=== PATIENT | female | born 1945 | race Caucasian/White ===

== ENCOUNTER 2017-02-05 22:56 | Emergency (ER) | payer MEDICARE, OTHER, MEDICAID ==
[~2017-02-05] VITALS: Ht 167.6 cm; Wt 81.8 kg
[~2017-02-05 22:56] MED LIST: ASPI81TA3 PO; DIPH1TAB PO; METO25TA6 PO; NAPR220C11 PO; ONDA8TAB7 PO; POTA20TA16 PO; PROC-4 PO
[2017-02-05 23:01] VITALS: BP 148/102; PULSE 114; RESP 16
--- NOTE | 2017-02-05 23:27 | ED.REPORT ---
HPI-Head Prob / Injury Date of Service Feb 05, 2017 ED Provider: Dr. Joey Quick M.D. A 71 year old female with a medical history including stage IV lung cancer with metastasis to the liver on chemotherapy presents to the ED with head trauma after a mechanical ground level fall onto cement earlier today. Associated symptoms include facial contusions, nose pain, neck pain, headache, jaw misalignment, bilateral hand pain, and bilateral knee pain. The patient does not know whether or not she lost consciousness. She denies nausea, vomiting, vision change, or other symptoms. The patient takes ASA daily. She was seen by her oncologist today before the fall. Nursing Notes Stated Complaint: FELL DOWN ON CEMENT FACE FIRST Chief Complaint: General Complaint Nursing Notes Reviewed: Yes Allergies: Coded Allergies: doxycycline (Verified Allergy, Severe, 02/05/17) oxycodone (Verified Allergy, Severe, Anaphylaxis, 02/05/17) PER PT. OK TO TAKE CODEINE AND NORCO meperidine (Verified Adverse Reaction, Severe, Nausea,Vomiting, 02/05/17) PER PT Scheduled Aspirin Chew (Aspirin Chew) 81 Mg Chew 81 MG PO DAILY Metoprolol Tartrate (Metoprolol Tartrate) 25 Mg Tablet 12.5 MG PO BID Potassium Chloride (Potassium Chloride) 20 Meq Tab.er.prt 40 MEQ PO BID TAKE WITH FOOD Prochlorperazine Maleate (Compazine) 10 Mg Tablet 10 MG PO q4-6hrs prn Scheduled PRN Diphenoxylate/Atropine 2.5-0.025 mg (Lomotil 2.5-0.025 mg) 1 Each Tablet 1 TABLET PO Q4H PRN PRN For Diarrhea or Loose Stool Naproxen Sodium (Aleve) 220 Mg Capsule 220 MG PO prn PRN PRN For Pain Ondansetron ODT (Zofran ODT) 8 Mg Tablet 8 MG PO Q4H PRN PRN For Nausea General Time Seen by Provider: 23:26 Chief Complaint Blunt head trauma, Other (Ground Level Fall) Hx Obtained From: Patient Arrived By: Walk-in Onset Occurred: 1 - 4 hours ago Symptom Duration: Since onset Caused by: Fall while (walking) Location: : Chin: Forehead: Neck: Nose Quality: Painful Severity: Current: Moderate Severity: Maximum: Moderate Pertinent Negative: Relieved by nothing Immunizations: Tetanus not up to date Recent Healthcare: Recent doctor visit Past Medical History Past Medical History Notes: Assorter: Dr. Kapoor Oncologist: Dr. 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), stage IV on chemo with carboplatin and etopside Indeterminate 7 mm area of enhancement in the brain Malignant bilateral pleural effusion Now liver metastases - 02/05/17 Past Surgical History Possibly a lung biopsy 01/06/2016 Reports: Cholecystectomy Family History noncontributory Smoking History Former Smoker Social History Alcohol Use: Denies alcohol use Drug Use: Denies drug use Other Social History: Good social support, Local resident Ambulatory Status Independent Review of Systems Review of Systems Note: + Facial contusions, jaw misalignment, nose pain LOC status unknown Constitutional: Denies: Fever GI: Denies: Diarrhea, Nausea, Vomiting Musculoskeletal: Reports: Extremity pain (Bilateral hands), Joint pain ( Bilateral knees), Neck pain Neurologic: Reports: Headache, Denies: Vision change Complete sys rev & neg: except as marked. Respiratory: Denies: Non-productive cough, Shortness of breath Physical Exam Initial Vital Signs Vital Signs (First) Date Time Temp Pulse Resp B/P Pulse Ox O2 Delivery O2 Flow Rate FiO2 02/05/17 23:01 36.8 114 16 148/102 Room Air 02/06/17 01:49 97 Initial VS: Reviewed Abdomen / GI: Soft, Non-tender Skin: Warm, Dry, No cyanosis Psychiatric: Mood/affect normal, Behavior normal, Normal thought content General/Constitutional: Awake, Alert, No acute distress Head / Eyes: Normocephalic, PERRL, EOMI, No nystagmus, No scleral icterus, Conjunctiva NL Trauma - General: Positive: Abrasion (Large, to forehead) Trauma - Eye Specific: Positive: Raccoon eyes ENT: Airway patent, Mucous membranes moist Nose: Positive: Nasal swelling present Trauma - General: Positive: Abrasion (Large, to nose and chin) Blood in bilateral nares Bite malalignment Obvious nasal fracture Neck: Atraumatic Neck / Muscle Tenderness: Positive: Midline tenderness mid Neurologic: Oriented X3, Speech NL Respiratory / Chest: Breath sounds NL, Breath sounds = bilat, No respiratory distress, No chest tenderness Cardiovascular: Heart rate NL, Regular rhythm, Heart sounds NL Lower Extremity / Pelvis / MS: Pelvis stable, Pelvis non-tender Lower Ext Brief Normals: Hip R exam normal, Hip L exam normal Wrist / Hand: Full range of motion Trauma / Burn / Environmental: Positive: Abrasion (To hypothenar eminences and right fingers) Interpretation & Diagnostics CT MAXILLOFACIAL: IMPRESSION: Right nasal bone fracture. Transmitted to ED by radiologist Abraham Gimenez M.D. at 02/06/2017 - 12:30:08 AM PDT Lab Results Interpretation Result Diagram: 02/06/17 0001 02/06/17 0001 Test 02/06/17 00:01 White Blood Count 4.5th/mm3 (3.8-10.1) Red Blood Count 3.86mil/mm3 (3.90-5.20) Hemoglobin 11.9g/dL (12.0-15.6) Hematocrit 37.3% (35.0-46.0) Mean Corpuscular Volume 96.6fL (81-100) Mean Corpuscular Hemoglobin 30.8pg (27.0-35.0) Mean Corpuscular Hemoglobin Concent 31.9% (32.0-37.0) Red Cell Distribution Width 16.9% (12.3-15.4) Platelet Count 206bil/L (150-400) Neutrophils (%) (Auto) 71.6% (40-74) Lymphocytes (%) (Auto) 12.4% (14-46) Monocytes (%) (Auto) 14.0% (4-12) Eosinophils (%) (Auto) 0% (0-5) Basophils (%) (Auto) 0.4% (0-3) Prothrombin Time 10.1sec (8.1-12.5) Prothromb Time International Ratio 0.95ratio Activated Partial Thromboplast Time 23.2sec (22.8-33.0) Sodium Level 140mEq/L (134-144) Potassium Level 4.4mEq/L (3.5-5.2) Chloride Level 104mEq/L (97-108) Carbon Dioxide Level 20mmol/L (18-29) Blood Urea Nitrogen 12mg/dL (8-27) Creatinine 0.81mg/dL (0.57-1.00) Estimat Glomerular Filtration Rate 100mL/min (>59) Glucose Level 140mg/dL (60-99) Calcium Level 9.7mg/dL (8.5-10.1) Magnesium Level 2.1mg/dL (1.6-2.6) Total Bilirubin 0.4mg/dL (0.0-1.2) Aspartate Amino Transf (AST/SGOT) 14U/L (0-50) Alanine Aminotransferase (ALT/SGPT) 17U/L (0-32) Alkaline Phosphatase 144U/L (25-165) Total Protein 6.6g/dL (6.4-8.4) Albumin 3.7g/dL (3.4-5.0) CT Head Interpretation IMPRESSION: No CT evidence of hemorrhage, mass, or acute infarct. Transmitted to ED at 02/06/2017 - 12:27:30 AM PDT Study: Head CT no contrast Interpretation / Wet Read by: Interpret - Radiologist (Abraham Gimenez M.D.) Re-Eval/Medical Decision Med Decision/Clinical Course 71-year-old female with prior history of lung cancer, suffered a ground-level fall, mechanical nature, fractured nose. CT of the cranium and neck are negative. No other overt facial injuries other than abrasions are noted. Remainder of exam is unremarkable. She has some abrasions on her hands and knees but no evidence of bony injury. Her wounds were soaked and then dressed with bacitracin. Discharged home for follow-up with PCP. Prompt return if nauseated. Source of Hx: Old records Re-Evaluation/Progress : Time of Eval: 00:54 Patient Status: Condition improved Re-Evaluation/Progress Note: Discussed with patient CT and lab results, diagnosis, and plan for discharge after wound treatment. Follow-up and return to the ER instructions given. Patient agrees with plan for care and all questions were addressed. Counseled Regarding: Diagnosis, Lab results, Need for follow-up, When/why to return to ED Discharge & Departure Shift Change Sign-Out Response to Therapy: Improved Primary Impression: Nasal fracture Encounter type: initial encounter Fracture type: closed Qualified Code: S02.2XXA - Fracture of nasal bones, initial encounter for closed fracture Additional Impressions: Cervical strain Encounter type: initial encounter Qualified Code: S16.1XXA - Strain of muscle, fascia and tendon at neck level, initial encounter Abrasions of multiple sites Facial contusion Encounter type: initial encounter Qualified Code: S00.83XA - Contusion of other part of head, initial encounter Disposition: Home All VS Reviewed: Yes Condition: Improved Patient Instructions: Abrasion (ED), Cervical Spine Strain (ED), Nasal Fracture (ED) Additional Instructions: Advil as needed for pain. Bacitracin to the open areas on her face 3-4 times daily to prevent crusting and scabbing. Follow-up with your doctor in the office. Return if any vomiting. Barrios if he develop any numbness or weakness or other new symptoms of concern. Referrals: Jamey Gonzalez MD (PCP) Toribioibcristina Attestation Portions of this note were transcribed by Qiana Schrader. I, Dr. Quick, personally performed the history, physical exam, and medical decision-making; I reviewed and confirmed the accuracy of the information in the transcribed note. Signed by: Jean Salazar, 02/06/2017, 02:55 copies to: Jamey Gonzalez MD, Christopher W MD Feb 05, 2017 23:27 QIANA SCHRADER Feb 05, 2017 23:40
[2017-02-05] MEDS ORDERED: Ondansetron 2 mg/mL 2 mL Inj IVPUSH ONE (23:50)
[2017-02-05] MEDS ORDERED: HYDROmorphone 0.5 mg/0.5 mL iSecure Syringe IVPUSH PRN (23:50)
[2017-02-06 00:12] LABS: BASOPHILS % (AUTO) 0.4 % (0-3); EOSINOPHILS % (AUTO) 0 % (0-5); Mean Corpuscular Hemoglobin 30.8 pg (27.0-35.0); Mean Corpuscular Volume 96.6 fL (81-100); NEUTROPHILS % (AUTO) 71.6 % (40-74); Platelet Count 206 bil/L (150-400)
[2017-02-06 00:28] LABS: INR 0.95 ratio
[2017-02-06 00:34] LABS: Magnesium 2.1 mg/dL (1.6-2.6)
[2017-02-06] MEDS ORDERED: TdaP Vaccine 0.5 mL Inj IM ONE (01:00)
[2017-02-06] MEDS ORDERED: Ketorolac 15 mg/mL Inj IVPUSH ONE (01:00)
[2017-02-06 01:49] VITALS: BP 140/90; PULSE 82; RESP 20; O2SAT 97
--- NOTE | 2017-02-06 07:59 | DRSVH ---
PROCEDURE: CT BRAIN WITHOUT CONTRAST ([id number]) INDICATIONS: fall with facial injuries TECHNIQUE: Noncontrast 4.5 mm thick angled axial sections acquired from the foramen magnum to the vertex, with c oronal reformats. COMPARISON: [facility], CT, CT FACE WO CON, 02/06/2017, 0:08. [facility], CT , CT BRAIN WO CON, 07/20/2016, 12:35. FINDINGS: Image quality: Excellent. CSF spaces: Basal cisterns are patent. No extra-axial fluid collections. The ventricles are symmet nicolás in size and shape. Brain: No intracranial bleeds or masses. There is mild cerebral volume loss for age, with resultant ventricular and sulcal prominence. There are mild periventricular and deep white matter chronic sma ll vessel ischemic changes. There is intracranial internal carotid artery atherosclerosis. Skull and face: Calvarium and visualized facial bones appear intact, without suspicious lesions. Parrish spect a right nasal bone fracture. Sinuses: Visualized sinuses and mastoids are clear. IMPRESSION: 1. No acute intracranial abnormalities. 2. Cerebral volume loss and chronic microvascular ischemic changes. 3. Right nasal bone fracture (please see separate facial bone CT report). No significant discrepancy with the head turbine operator radiology preliminary report. Dictated by: Stephan Hodgson M.D. on 02/06/2017 at 7:58 Transcribed by: PAL on 02/06/2017 at 7:59 Approved by: Stephan Hodgson M.D. on 02/06/2017 at 8:50
--- NOTE | 2017-02-06 08:01 | DRSVH ---
PROCEDURE: CT CERVICAL SPINE WITHOUT CONTRAST ([id number]) INDICATIONS: fall with facial injuries TECHNIQUE: Noncontrast 3 mm thick sections acquired from the skull base to the T4 level. Sagittal and coronal r eformats were then constructed. For radiation dose reduction, the following was used: automated exp osure control, adjustment of mA and/or kV according to patient size. COMPARISON: [facility], OR, PET NECK TO MID THIGH STD, 05/04/2016, 11:40. FINDINGS: Image quality: Excellent. Bones: No fractures or dislocations. Mild scoliosis. There is grade 1 anterolisthesis of C3 over C4 . Degenerative disc disease is present in cervical spine, moderate to at C6-C7. There is bilateral fa cet arthropathy, most pronounced at C3-C4 and C4-C5 on the left. Visualized superior ribs are intact. Soft tissues: Prevertebral soft tissues are normal in thickness. No paravertebral hematomas. No ap ical pneumothoraces. There are bilateral thyroid nodules. IMPRESSION: 1. No acute injuries in cervical spine. 2. Degenerative changes as described. 3. Degenerative spondylolisthesis at C3-C4. 4. Bilateral thyroid nodules. Thyroid ultrasound suggested if clinically indicated. No significant discrepancy with the lighting engineer radiology preliminary report. Please note incidental finding of thyroid nodules not mentioned in the preliminary report. Dictated by: Stephan Hodgson M.D. on 02/06/2017 at 7:59 Transcribed by: PAL on 02/06/2017 at 8:00 Approved by: Stephan Hodgson M.D. on 02/06/2017 at 8:55
--- NOTE | 2017-02-06 09:05 | DRSVH ---
PROCEDURE: CT FACE WITHOUT CONTRAST ([id number]) INDICATIONS: fall with facial injuries TECHNIQUE: Noncontrast 1.5 mm thick axial images acquired from the mandible through the frontal sinuses, with co esperanza and sagittal reformatting. For radiation dose reduction, the following was used: automated ex posure control. COMPARISON: None. FINDINGS: Image quality: Excellent. Bones and teeth: Minimally displaced right nasal bone fracture and nondisplaced left nasal bone frac ture. Orbital olvera are intact. Sinus olvera show no fracture or deformity. Visualized portions of t he mandible demonstrate no fractures or subluxation. Zygomatic arches are intact. Pterygoid plates are intact. Visualized portions of the skull base and auditory canals are intact. Sinuses: Paranasal sinuses are aerated, without fluid levels, mucosal thickening, or mucoceles. Mas toid air cells are aerated. Soft tissues: There is right preorbital soft tissue edema. No enlarged lymph nodes. No soft tissue lacerations or debris. Vascular: Visualized vascular structures appear normal in the absence of contrast. Bony vascular fo ramina and canals are intact. IMPRESSION: Minimally displaced right nasal bone fracture and nondisplaced left nasal bone fracture. No significant discrepancy with the grapple crew leader radiology preliminary report. Dictated by: Stephan Hodgson M.D. on 02/06/2017 at 8:10 Approved by: Stephan Hodgson M.D. on 02/06/2017 at 9:03
== END 2017-02-06 01:50 | disposition home or self-care (01) ==
LOC: SED 22:56
DX: S02.2XXA Fracture of nasal bones, initial encounter for closed fracture (principal); S16.1XXA Strain of muscle, fascia and tendon at neck level, initial encounter; S00.83XA Contusion of other part of head, initial encounter; S60.511A Abrasion of right hand, initial encounter; W18.39XA Other fall on same level, initial encounter; Y93.01 Activity, walking, marching and hiking; Y92.9 Unspecified place or not applicable; Y99.8 Other external cause status; Z87.891 Personal history of nicotine dependence; Z79.82 Long term (current) use of aspirin; Z88.8 Allergy status to other drugs, medicaments and biological substances; Z88.1 Allergy status to other antibiotic agents; Z88.5 Allergy status to narcotic agent; Z85.118 Personal history of other malignant neoplasm of bronchus and lung; Z85.05 Personal history of malignant neoplasm of liver; Z23 Encounter for immunization
CPT/HCPCS: 36415; 70450; 70486; 72125; 80053; 83735; 85025; 85610; 85730; 90471; 90715; 96374; 99285; J1885

== ENCOUNTER 2017-05-13 07:26 | Inpatient (IN) | payer MEDICARE, OTHER ==
[~2017-05-13] VITALS: Ht 167.6 cm; Wt 83.2 kg
[~2017-05-13 07:26] MED LIST changes: +IBUP200C11 PO
--- NOTE | 2017-05-13 07:27 | ED.REPORT ---
HPI-Trauma Minor / Fall Date of Service May 13, 2017 ED Provider: Lisa Magana MD Patient is a 71 year old female with a history of metastatic lung cancer undergoing radiation therapy who presents to the ED via EMS after a ground level fall today. Associated symptoms include progressing weakness over the past week, decreased appetite and numbness in her extremities. She denies injury from her fall. Per the patient's daughter, the patient has had decreased barrel planer strength and unable to walk due to weakness that started this morning. The patient began radiation two weeks ago and her last radiation therapy was 3 days ago. Nursing Notes Stated Complaint: WEAKNESS Chief Complaint: GLF Nursing Notes Reviewed: Yes Allergies: Coded Allergies: doxycycline (Verified Allergy, Severe, 02/05/17) oxycodone (Verified Allergy, Severe, Anaphylaxis, 02/05/17) PER PT. OK TO TAKE CODEINE AND NORCO meperidine (Verified Adverse Reaction, Severe, Nausea,Vomiting, 02/05/17) PER PT Scheduled Aspirin Chew (Aspirin Chew) 81 Mg Chew 81 MG PO DAILY Ibuprofen (Advil) 200 Mg Capsule 200 MG PO PRN Metoprolol Tartrate (Metoprolol Tartrate) 25 Mg Tablet 12.5 MG PO BID Potassium Chloride (Potassium Chloride) 20 Meq Tab.er.prt 40 MEQ PO BID TAKE WITH FOOD Prochlorperazine Maleate (Compazine) 10 Mg Tablet 10 MG PO q4-6hrs prn Scheduled PRN Diphenoxylate/Atropine 2.5-0.025 mg (Lomotil 2.5-0.025 mg) 1 Each Tablet 1 TABLET PO Q4H PRN PRN For Diarrhea or Loose Stool Naproxen Sodium (Aleve) 220 Mg Capsule 220 MG PO prn PRN PRN For Pain Ondansetron ODT (Zofran ODT) 8 Mg Tablet 8 MG PO Q4H PRN PRN For Nausea General Time Seen by MD: 09:10 Chief Complaint Fall Hx Obtained From: Patient, Daughter, EMS Arrived By: Ambulance Onset Occurred: Just prior to arrival Symptom Duration: Since onset Caused by: Fall on ground Recent Healthcare: Recent doctor visit Similar Sx Previous: No Past Medical History Past Medical History Notes: Workforce Planning Analyst: Dr. Kapoor Oncologist: Dr. 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), stage IV on chemo with carboplatin and etopside Indeterminate 7 mm area of enhancement in the brain Malignant bilateral pleural effusion Now liver metastases - 02/05/17 Past Surgical History Possibly a lung biopsy 01/06/2016 Reports: Cholecystectomy Family History noncontributory Smoking History Former Smoker Social History Alcohol Use: Denies alcohol use Drug Use: Denies drug use Other Social History: Good social support, Local resident Ambulatory Status Independent Review of Systems Review of Systems Note: +decreased appetite Constitutional: Denies: Chills, Fever Respiratory: Denies: Non-productive cough, Shortness of breath Skin: Denies Itching Neurologic: Reports: Numbness, Problem walking, Weakness, Denies: Change LOC Complete sys rev & neg: except as marked. Physical Exam Initial Vital Signs Vital Signs (First) Date Time Temp Pulse Resp B/P Pulse Ox O2 Delivery O2 Flow Rate FiO2 05/13/17 07:37 36.2 107 16 129/95 92 Room Air Initial VS: Reviewed General/Constitutional: Awake, Alert hard of hearing Neck: Atraumatic, Supple, Full range of motion Head / Eyes: Atraumatic, Normocephalic, PERRL, EOMI Respiratory / Chest: Atraumatic, Breath sounds NL, Breath sounds = bilat, No respiratory distress Cardiovascular: Heart rate NL, Regular rhythm, Heart sounds NL flexed posture in the both hands flexed posture in bilateral toes Skin: Atraumatic, Color NL, No rash, Warm, Dry Neurologic: Oriented X3, Speech NL, No motor deficits, No sensory deficits Abnormal Thinking / Perception: Positive: Confused Interpretation & Diagnostics Lab Results Interpretation Result Diagram: 05/13/17 0800 05/13/17 0800 Test 05/13/17 08:00 White Blood Count 8.1th/mm3 (3.8-10.1) Red Blood Count 3.85mil/mm3 (3.90-5.20) Hemoglobin 12.1g/dL (12.0-15.6) Hematocrit 37.2% (35.0-46.0) Mean Corpuscular Volume 96.6fL (81-100) Mean Corpuscular Hemoglobin 31.4pg (27.0-35.0) Mean Corpuscular Hemoglobin Concent 32.5% (32.0-37.0) Red Cell Distribution Width 16.0% (12.3-15.4) Platelet Count 174bil/L (150-400) Neutrophils (%) (Auto) 70.3% (40-74) Lymphocytes (%) (Auto) 15.4% (14-46) Monocytes (%) (Auto) 12.8% (4-12) Eosinophils (%) (Auto) 0.9% (0-5) Basophils (%) (Auto) 0.4% (0-3) Sodium Level 139mEq/L (134-144) Potassium Level 3.2mEq/L (3.5-5.2) Chloride Level 98mEq/L (97-108) Carbon Dioxide Level 27mmol/L (18-29) Blood Urea Nitrogen 10mg/dL (8-27) Creatinine 0.66mg/dL (0.57-1.00) Estimat Glomerular Filtration Rate 127mL/min (>59) Glucose Level 123mg/dL (60-99) Calcium Level 9.0mg/dL (8.5-10.1) Total Bilirubin 0.5mg/dL (0.0-1.2) Aspartate Amino Transf (AST/SGOT) 25U/L (0-50) Alanine Aminotransferase (ALT/SGPT) 28U/L (0-32) Alkaline Phosphatase 149U/L (25-165) Total Protein 6.7g/dL (6.4-8.4) Albumin 3.3g/dL (3.4-5.0) Hold Parish Top Tube Received (Received) CT Head Interpretation IMPRESSION: Hypodensities in the right frontal lobe, right temporal lobe and left occipital lobe are consistent with vasogenic edema related to multiple intracranial metastases which were better seen on the comparison contrast enhanced MRI. There is no midline shift. If clinically indicated, followup MRI with and without contrast may be considered. Dictated by: Stephan Hodgson M.D. on 05/13/2017 at 11:23 Approved by: Stephan Hodgson M.D. on 05/13/2017 at 11:34 Interpretation / Wet Read by: Interpret - Radiologist Re-Eval/Medical Decision Med Decision/Clinical Course 71-year-old woman with metastatic lung cancer with multiple lesions to her brain. One week ago started radiation palliative for the brain lesions had 2 doses has had a single dose of amiodarone therapy. MRI 2 weeks ago did show vasogenic edema she has not been on any steroids to try to allow the immunotherapy to be as effective as possible. Last night was doing well this morning awoke and was having trouble moving arms legs unable to stand unable to do transfers and complaining of numbness in all 4 extremities. Lung discussion regarding her diagnosis at this point she is still not at a point that she is excepting the fact that her metastatic cancer is progressing and she is going to be dying. Decadron is given in the emergency department. Care is reviewed with Dr. Boone. CT scan is repeated vasogenic edema is noted today no new bleeding is noted into the multiple metastatic lesions in her brain. Question as to whether To make some improvement with decreasing the edema and then continue with the immunotherapy and radiotherapy or whether we should simply proceed with hospice and making sure that her symptoms are controlled We will admit to hospitalist service. Hospice consult at 2:[address] Boone we will talk with her later this afternoon and see if there is been any benefit from the Decadron given this morning. All questions and options are reviewed with patient and her daughter. Re-Evaluation/Progress : Time of Eval: 10:28 Re-Evaluation/Progress Note: Discussed plan for CT after consult with Dr. Boone and plan for admit. Patient understands and agrees to plan. All questions were addressed. Consultation #1: Referral / Consult Name: Perfecto Bridges MD Consulted With: Primary care physician (oncology) Call Returned at: 10:20 Indigo Vat Tender Cloth: Agrees with eval, Agrees with plan Note: Consult with Dr. Boone, who recommends a CT to see if it is edema. He will consult as an inpatient. Consultation #2: Referral / Consult Name: Edin Dorman MD Consulted With: Hospitalist Call Returned at: 11:45 Indigo Vat Tender Cloth: Agrees with eval, Agrees with plan, Accepts admit Counseled Regarding: Diagnosis, Lab results, Need for admission Discharge & Departure Impression: Primary Impression: Vasogenic brain edema Additional Impressions: Metastatic lung cancer (metastasis from lung to other site) Laterality: unspecified laterality Qualified Code: C34.90 - Malignant neoplasm of unspecified part of unspecified bronchus or lung Numbness in both hands Numbness in both legs Disposition: ADMITTED TO HOSPITAL Discharge Condition All VS Reviewed: Yes Condition: Stable Referrals: [facility] Scribe Attestation Portions of this note were transcribed by Melanie Roldan. I, Dr. Magana personally performed the history, physical exam and medical decision-making; I reviewed and confirmed the accuracy of the information in the transcribed note. Signed by: Jean Barnard, 05/13/17 and 1200 copies to: Perfecto Bridges MD; [facility] Guy Mclain MD May 13, 2017 07:27 Yuliana Nickerson May 13, 2017 08:31 Devi Roldan May 13, 2017 09:11 Lisa Magana MD May 13, 2017 12:37
[2017-05-13 07:37] VITALS: BP 129/95; PULSE 107; RESP 16; O2SAT 92
[2017-05-13 08:26] LABS: BASOPHILS % (AUTO) 0.4 % (0-3); EOSINOPHILS % (AUTO) 0.9 % (0-5); MONOCYTES % (AUTO) 12.8 % (4-12); Mean Corpuscular Hemoglobin 31.4 pg (27.0-35.0); Mean Corpuscular Volume 96.6 fL (81-100); NEUTROPHILS % (AUTO) 70.3 % (40-74); Platelet Count 174 bil/L (150-400)
[2017-05-13] MEDS ORDERED: HYDROmorphone 0.5 mg/0.5 mL iSecure Syringe IVPUSH PRN (10:10)
[2017-05-13] MEDS ORDERED: Dexamethasone Inj 10 MG in 0.9% Sodium Chloride-Pha MIX 50 ML IV ONE (10:10)
[2017-05-13] MEDS ORDERED: Ondansetron 2 mg/mL 2 mL Inj IVPUSH ONE (10:40)
[2017-05-13 11:21] VITALS: BP 141/91; PULSE 91; RESP 18; O2SAT 96
--- NOTE | 2017-05-13 11:36 | DRSVH ---
PROCEDURE: CT BRAIN WITHOUT CONTRAST ([id number]) INDICATIONS: acute progressive neurologic dysfunction TECHNIQUE: Noncontrast 4.5 mm thick angled axial sections acquired from the foramen magnum to the vertex, with c oronal reformats. COMPARISON: [facility], MR, MR BRAIN W&WO CON, 04/29/2017, 12:20. [facility], CT, CT BRAIN WO CON, 02/06/2017, 0:08. FINDINGS: Image quality: Excellent. CSF spaces: Basal cisterns are patent. No extra-axial fluid collections. The ventricles are symmet nicolás in size and shape. Brain: There are hypodensities in the right frontal lobe, right temporal and left occipital lobe, co rrelating with the enhancing masses seen on MRI dated 04/29/2017. This finding is new compared to the last CT on 02/06/2017. No intracranial bleeds. There is cerebral volume loss for age, with resultant ventricular and sulcal prominence. There are periventricular and deep white matter chronic small ves jimmy ischemic changes. There is intracranial internal carotid artery atherosclerosis. Skull and face: Calvarium and visualized facial bones appear intact, without suspicious lesions. Sinuses: Visualized sinuses and mastoids are clear. IMPRESSION: Hypodensities in the right frontal lobe, right temporal lobe and left occipital lobe are consistent with vasogenic edema related to multiple intracranial metastases which were better seen on the comparison contrast enhanced MRI. There is no midline shift. If clinically indicated, followup M RI with and without contrast may be considered. Dictated by: Stephan Hodgson M.D. on 05/13/2017 at 11:23 Approved by: Stephan Hodgson M.D. on 05/13/2017 at 11:34
[2017-05-13 12:01] VITALS: BP 141/91; PULSE 91; RESP 18; O2SAT 96
[2017-05-13] MEDS ORDERED: Alum-Mag Hydrox-Simeth 30 mL Suspension PO PRN (12:30)
[2017-05-13] MEDS ORDERED: Ondansetron 2 mg/mL 2 mL Inj IVPUSH PRN (12:30)
[2017-05-13] MEDS ORDERED: HYDR-4003 PO (12:45)
[2017-05-13] MEDS ORDERED: HYDR2TAB28 PO (12:45)
--- NOTE | 2017-05-13 12:50 | NUR ---
Arrival to [facility] Rm 1010 Pt arrived to [facility] Rm 1010; daughter at bs. A&Ox3, transfer using slide board to bed from [facility]. A&Ox3, stiff extremities and some decorticate posturing noted with hands; RA, SPO2 mid 90's, BP elevated 163/113; answers questions appropriately, SLEETMUTE noted, R chest port-a-cath accessed and IV NS infusing 50mls/hr. Markings on skin, upper thighs bilaterally medial sides, below abdomen for radiation treatments per daughter. Pt tucked in with warm blankets and call light in place. Order for Hospice consult today at 2pm. Will continue to monitor with frequent rounds.
[2017-05-13 13:07] VITALS: BP 163/113; PULSE 99; RESP 16; O2SAT 96
[2017-05-13] MEDS ORDERED: METO25TA6 PO (14:16)
[2017-05-13] MEDS: 0.9% Sodium Chloride 250 ML IV SCH (14:22)
[2017-05-13] MEDS ORDERED: Sodium Chloride LOK Flush 10 mL Syringe IVFLUSH PRN ×2 (14:25)
[2017-05-13] MEDS ORDERED: HepLOK Flush 100 unit/mL 5 mL Inj IVFLUSH PRN (14:25)
--- NOTE | 2017-05-13 15:01 | PCM.HPMED ---
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 Pt had had new MRI finding of multiple new small brain metastases on 04/29/17. Outpatient Oncologist- Dr. Boone. Last saw April 30. Started immunotherapy at that visit. 04/29/17- MRI- multiple new small brain metastases April 2017, new since 2015. Pt started XRT again and had 2 treatments. Was to get 3rd XRT today. Pt was not started on steroids as had no neurological symptoms at the time. Plan for Nivolumab 1 mg/kg and combined with ipilimumab 3 mg/kg every three weeks for four cycles and then switching to maintenance single agent nivolumab Past tx- received induction chemotherapy with carboplatin, etoposide, followed by consolidation radiation to the chest as well as prophylactic cranial radiation in July 2016 with documented lack of central nervous system metastases based on MRI of late June 2016. She had sold her house and is currently staying at a condo of her son in [facility] 71 year old female with a history of metastatic lung cancer undergoing radiation therapy who presents to the ED via EMS after a ground level fall today. Associated symptoms include progressing weakness over the past week, decreased appetite and numbness in her extremities. She denies injury from her fall. Per the patient's daughter, the patient has had decreased railway head tender strength and unable to walk due to weakness that started this morning. The patient began radiation two weeks ago and her last radiation therapy was 3 days ago Allergies Coded Allergies: doxycycline (Verified Allergy, Severe, 02/05/17) oxycodone (Verified Allergy, Severe, Anaphylaxis, 02/05/17) PER PT. OK TO TAKE CODEINE AND NORCO meperidine (Verified Adverse Reaction, Severe, Nausea,Vomiting, 02/05/17) PER PT PMH Social History Hx Alcohol Use: No Hx Substance Use: No Hx Tobacco Use: Yes Smoking Status: Former Smoker Exam Vital Signs Vital Sign - Last Date Time Temp Pulse Resp B/P Pulse Ox O2 Delivery O2 Flow Rate FiO2 05/13/17 13:07 36.5 99 16 163/113 96 Room Air Exam Date of Service: 05/13/17 1026 PROCEDURE: CT BRAIN WITHOUT CONTRAST ([id number]) IMPRESSION: Hypodensities in the right frontal lobe, right temporal lobe and left occipital lobe are consistent with vasogenic edema related to multiple intracranial metastases which were better seen on the comparison contrast enhanced MRI. There is no midline shift. If clinically indicated, followup MRI with and without contrast may be considered. Lab and Diagnostics Result Diagram: 05/13/17 0800 05/13/17 0800 Assessment & Plan 05/13/17- CT Brain without cont- Hypodensities in the right frontal lobe, right temporal lobe and left occipital lobe are consistent with vasogenic edema related to multiple intracranial metastases. No midline shift. Edin Dorman MD May 13, 2017 15:01
[2017-05-13] MEDS ORDERED: Ondansetron 8 mg ODT Tablet PO PRN (16:40)
[2017-05-13] MEDS: Dexamethasone 4 mg/mL Inj IVPUSH SCH (17:20)
[2017-05-13] MEDS ORDERED: Potassium Chloride 20 mEq SR Tablet PO ONE (17:35)
--- NOTE | 2017-05-13 17:35 | PCM.HPMED ---
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 Pt had had new MRI finding of multiple new small brain metastases on 04/29/17 presenting with progressively worsening weakness to the point of not being able to walk this morning. Patient says her hands are contracted and she can no longer bear her own weight. Her limbs are also moving spontaneously at times. Denies any respiratory distress. Denies any loss of consciousness. Denies any seizure-like activity. Outpatient Oncologist- Dr. Boone. Last saw April 30. Started immunotherapy at that visit. 04/29/17- MRI- multiple new small brain metastases April 2017, new since 2015. Pt started XRT again and had 2 treatments. Was to get 3rd XRT today. Pt was not started on steroids as had no neurological symptoms at the time. Plan for Nivolumab 1 mg/kg and combined with ipilimumab 3 mg/kg every three weeks for four cycles and then switching to maintenance single agent nivolumab Past tx- received induction chemotherapy with carboplatin, etoposide, followed by consolidation radiation to the chest as well as prophylactic cranial radiation in July 2016 with documented lack of central nervous system metastases based on MRI of late June 2016. She had sold her house and is currently staying at a condo of her son in [facility] Review of Systems: 12 point ROS negative except that in HPI Allergies Coded Allergies: doxycycline (Verified Allergy, Severe, 02/05/17) oxycodone (Verified Allergy, Severe, Anaphylaxis, 02/05/17) PER PT. OK TO TAKE CODEINE AND NORCO meperidine (Verified Adverse Reaction, Severe, Nausea,Vomiting, 02/05/17) PER PT Home Medications Aspirin Chew (Aspirin Chew) 81 Mg Chew 81 MG PO DAILY Ibuprofen (Advil) 200 Mg Capsule 200 MG PO PRN Metoprolol Tartrate (Metoprolol Tartrate) 25 Mg Tablet 12.5 MG PO BID Potassium Chloride (Potassium Chloride) 20 Meq Tab.er.prt 40 MEQ PO BID TAKE WITH FOOD Prochlorperazine Maleate (Compazine) 10 Mg Tablet 10 MG PO q4-6hrs prn Scheduled PRN Diphenoxylate/Atropine 2.5-0.025 mg (Lomotil 2.5-0.025 mg) 1 Each Tablet 1 TABLET PO Q4H PRN PRN For Diarrhea or Loose Stool Naproxen Sodium (Aleve) 220 Mg Capsule 220 MG PO prn PRN PRN For Pain Ondansetron ODT (Zofran ODT) 8 Mg Tablet 8 MG PO Q4H PRN PRN For Nausea PMH 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 Neck: Atraumatic, Supple, Full range of motion Head / Eyes: Atraumatic, Normocephalic, PERRL, EOMI Respiratory / Chest: Atraumatic, Breath sounds NL, Breath sounds = bilat, No respiratory distress Cardiovascular: Heart rate NL, Regular rhythm, Heart sounds NL Ext: contracture of bilateral toes and hands, can unbend passively. Skin: Atraumatic, Color NL, No rash, Warm, Dry Neurologic: Oriented X3, Speech NL, contracture of bilateral toes and hands, can unbend passively, Hand drier belt conveyor 1/5 bilaterally. Spont movements without pattern. Lab and Diagnostics Result Diagram: 05/13/17 0800 05/13/17 0800 X-Rays, CTs and MRIs Date of Service: 05/13/17 1026 PROCEDURE: CT BRAIN WITHOUT CONTRAST ([id number]) IMPRESSION: Hypodensities in the right frontal lobe, right temporal lobe and left occipital lobe are consistent with vasogenic edema related to multiple intracranial metastases which were better seen on the comparison contrast enhanced MRI. There is no midline shift. If clinically indicated, followup MRI with and without contrast may be considered. Assessment & Plan 71 F h/o of TIA, HTN, stage IV small cell lung cancer dx 2016 w/ mets to Liver , Bone, Brain tx w/ chemotherapy and prophylactic cranial radiation in July 2016, currently undergoing third-line therapy with combination immunotherapy with nivolumab and ipilimumab. Pt had had new MRI finding of multiple new small brain metastases on 04/29/17 presenting with progressively worsening motor dysfunction likely secondary to immunotherapy or vasogenic edema found CT of the head. #Vasogenic Edema 2/2 to intracranial mets- poa, active- 05/13/17- CT Brain without cont- Hypodensities in the right frontal lobe, right temporal lobe and left occipital lobe are consistent with vasogenic edema related to multiple intracranial metastases. No midline shift. No evidenc of hemorrhage. - Pt given Decadron 10mg IV in ED. - Hospice planned to see pt in the AM when daughter. - Discussed w/ Outpatient Oncologist- Dr. Boone. Recs- will continue Decadron 4mg IV q8hr.He will see tonight or in the AM. He advises treating the edema and monitoring for improvement in symptoms. # Stage IV small cell lung cancer dx 2016 w/ mets to Liver, Bone, Brain , poa, active. -tx w/ chemotherapy and prophylactic cranial radiation in July 2016, currently undergoing third-line therapy with combination immunotherapy with nivolumab and ipilimumab #HTN- poa, activeelevated, likely worsened by pain. Continued pt's hm med Metoprolol. #Nausea-poa, active- Zofran and Compazine as pt usually takes both. #Hypokalemia- poa, active- replete prn. # DVT Pppx- SCD. Avoid chem ppx given risk of intracranial hemorrhage per oncology. Pain Evaluation: Adequate Pain Control Edin Dorman MD May 13, 2017 17:35
[2017-05-13 17:41] VITALS: BP 133/83; PULSE 93; RESP 18; O2SAT 95
[2017-05-13] MEDS: ProchlorPERazine 5 mg/mL 2 mL Inj IVPUSH PRN (18:04)
--- NOTE | 2017-05-13 19:45 | CCS NOTE ---
[facility] [address] [place] [id number] MEDICAL ONCOLOGY OFFICE NOTE PATIENT: PAMELLA COUCH : 1945 MR#: [id number] DATE: 05/13/2017 JOB ID: [id number] DATE: 05/13/2017 This patient is a 71-year-old lady with recent progression of small cell lung cancer, stage IV disease, with new findings of small but multifocal brain metastases. She has just recently started immunotherapy with combination of nivolumab and ipilimumab on April 30, first dose administered. Two days to go since she started also whole-brain radiation and has had two fractions. When I saw her last time, she drove herself to the clinic and was ambulatory and she has been in a resilient course over the past day year with this diagnosis. For the past few days, however, she has rapidly deteriorated, per her daughter, and brought the patient to the ER and I spoke with the ER physician who found that the patient was extremely weak in her legs, was not able to stand, and had also a dysfunction in her motility in her hand and was somewhat confused. I requested urgent noncontrast CT of the head to rule out hemorrhage within the metastases as well as in the degree of vasogenic edema. The CT showed no evidence of a midline shift, but there were several areas of edema and she has also cerebellar involvement. I had asked the ER physician to proceed with administration of dexamethasone 4 mg already and she received that earlier today. When I saw her at bedside in the hospital, in the presence of her daughter, she stated that she is slightly better than earlier this morning. On exam, however, although communicating but at times answers questions with a confusional response, and has a significant ataxia in her hands and also some dystonic features bilaterally. She is able to move her legs in the bed and bend her knee but is unable to bear her weight when attempting to stand. She has no rash, afebrile, no diarrhea. Lab studies show no significant derangements. ASSESSMENT AND PLAN: A 71-year-old, pleasant lady who is slightly more than a year out from diagnosis of stage IV small cell lung cancer and has been treated with several lines of therapy, including induction chemotherapy, radiation to the chest, and prophylactic cranial radiation. She had unfortunately recently disease progression with new findings of multifocal small brain metastases, and has been switched to combination of nivolumab and ipilimumab, receiving first dose on April 30 and started additional whole-brain radiation last , and had only two fractions. Given the initiation of immunotherapy, we had deferred to place her on prophylactic dexamethasone to not reduce the immune response needed for mechanism of action of these agents. She was in a reasonably good functional status when I saw her a couple of weeks ago. She drove herself to the clinic, was ambulatory. There has been a significant deterioration over the past 2-3 days per patient's family and as verified by me she has a new onset of ataxia as well as dystonic features in her hands, and weakness in her legs, unable to walk. She is also slightly confused. CT scan shows no hemorrhage. The patient and ER physician have discussed hospice as an option. This discussion has taken place several times in our office, and so far, she wanted to aggressively pursue therapy, but she was also in much better functional status. At this point, I would like to test and see to what degree the vasogenic edema seen in the CT scan is these symptoms and therefore dexamethasone was started at 4 mg IV three times a day earlier today, and I will reassess her tomorrow. If there is significant improvement, then we have a partial explanation. Otherwise, it is most likely a paraneoplastic phenomenon as well as possible cerebellar disease involvement, and in that setting, transition to hospice might be appropriate. The patient has an informational visit with hospice scheduled for tomorrow. I will reassess her tomorrow again.
[2017-05-13 20:10] VITALS: BP 160/95; PULSE 117; RESP 18; O2SAT 96
[2017-05-14 00:05] VITALS: BP 142/84; PULSE 91; RESP 18; O2SAT 92
[2017-05-14] MEDS: Dexamethasone 4 mg/mL Inj IVPUSH SCH ×3 (00:38→17:06)
[2017-05-14 05:30] VITALS: BP 148/91; PULSE 80; RESP 17; O2SAT 97
--- NOTE | 2017-05-14 05:53 | NUR ---
No Tachycardia this Shift Patient was in the 90's throughout this shift. Other VSS with minimal pain. Plan today is to meet with Hospice to determine if they are a good fit and decide a discharge plan.During this shift the patient choose to use a bedpan instead of getting up to toilet because it was to much trouble.
[2017-05-14] MEDS: ProchlorPERazine 5 mg/mL 2 mL Inj IVPUSH PRN (08:29)
[2017-05-14 08:36] LABS: MONOCYTES % (AUTO) 6.6 % (4-12); Mean Corpuscular Hemoglobin 31.1 pg (27.0-35.0); Mean Corpuscular Volume 95.4 fL (81-100); NEUTROPHILS % (AUTO) 76.5 % (40-74); Platelet Count 183 bil/L (150-400)
[2017-05-14 08:37] LABS: BASOPHILS % (AUTO) 0.3 % (0-3); EOSINOPHILS % (AUTO) 0.1 % (0-5)
[2017-05-14 08:46] LABS: INR 1.1 ratio
[2017-05-14 09:00] VITALS: BP 149/93; PULSE 103; RESP 20; O2SAT 92
--- NOTE | 2017-05-14 11:01 | NUR ---
Nausea Patient reported nausea. 10mg Compazine given. Patient denies pain. Patient able to reposition self for comfort. Call light and tray table within reach. Will continue to monitor patient hourly. Compazine comes from pharmacy, 10mg vial in patient drawer. If used, please ask pharmacy to resend so one is on hand.
--- NOTE | 2017-05-14 11:58 | NUR ---
Social Work- Initial Assessment/ Multidisciplinary Rounds Data: See Initial Assessment and Advance Directive Intervention for additional information. Pt discussed in rounds. Pt to receive Hospice informational visit this morning. Pt is not ready for discharge at this time, potentially tomorrow pending hospice. Hospice order received from ED prior to admission. Latonia at [facility] obtained signed consents from pt this morning. Per preliminary conversation with Denise at [facility], pt's equipment would be able to be delivered tomorrow with a potential hospice open date of tomorrow afternoon. SW awaiting confirmation call from Denise this afternoon. Jonna is a 71 year old admitted 05/13/17 for lung cancer, mets to brain per H&P.Pt is followed by Oncology MD Boone. Pt's insurance is [employer] and [employer]. Pt does not have a PCP and is primarily followed by Oncology. Pt's readmit risk score is 4. SW met with pt and daughter at bedside regarding discharge plan, SW role explained. Pt alert and oriented x3. Pt's capacity for self-care assessed. Pt [place] on [address] [place] [address] in a home with her daughter and her daughters boyfriend. Pt is not independent with ADLs and self-care and will require much assistance from her daughter. SW discussed caregiving responsibility through Hospice and explained that they do not provide 13/05 care. Pt's daughter agreeable. Pt and daughter received hospice informational visit this morning. Pt is largely bed bound and will require significant assistance. Pt may require BLS transportation and SW explained to pt's daughter that this is not guaranteed to be covered by insurance. DCP reviewing pt's chart and will discuss with MD. Pt does not drive. Of note, pt has a ramp to enter her home but the road is gravel. Pt has history with HH services, RN PT OT but company unknown. Pt has no history with SNF services. Pt has no DPOA on file and SW requested that pt bring in copy of DPOA. Pt reports that her daughter Tish is DPOA. SW provided Discharge planning Checklist and requested that pt contact [facility] if needs identified. SW provided phone number and plan on whiteboard. Pt agreeable. SW will continue to follow. Assessment: Pt for whom hospice is medically indicated. Plan: SW awaiting confirmation from [facility] regarding open date and time. MD anticipates discharge tomorrow to home with hospice. Pt and daughter agreeable. SW will continue to follow. Ingrid Mcpherson, CL[facility]ICAL RECRU[facility] Addendum: 05/14/17 at 1205 by DON MCPHERSON SS Amended: Links added.
[2017-05-14 14:10] VITALS: BP 129/82; PULSE 91; RESP 18; O2SAT 97
[2017-05-14] MEDS: 0.9% Sodium Chloride 250 ML IV SCH (15:11)
--- NOTE | 2017-05-14 17:24 | PCM.PNMED ---
Subjective Date of Service May 14, 2017 Subjective Denies any new issues/complaints. Says overall feeling better than yesterday Exam Vital Signs Vital Sign - Last Date Time Temp Pulse Resp B/P Pulse Ox O2 Delivery O2 Flow Rate FiO2 05/14/17 14:10 36.4 91 18 129/82 97 Room Air Intake and Output 05/13/17 05/13/17 05/14/17 Cumulative From/Thru 15:00 23:00 07:00 05/13/17 07:37 - 05/14/17 05:30 Intake Total 837 ml 550 ml 1387 ml Output Total 950 ml 600 ml 1550 ml Balance -113 ml -50 ml -163 ml Intake Oral 400 ml 550 ml 950 ml IV Total 437 ml 437 ml Output Urine Total 950 ml 600 ml 1550 ml # Bowel Movements 0 0 General: Alert, Cooperative, No Acute Distress Eyes: Scleral Anicteric Nose: Mucous Membr Moist/[place] Mouth: Mucous Membr Moist/[place] Neck: Supple Chest & Lungs: Chest Wall Normal, Clear to auscultation & percussion Cardiovascular: Regular Rate/Rhythm Abdomen: Non-tender, Normoactive bowel tones, Soft Extremities: No cyanosis/clubbing/edma bilat Neurological: Grossly Neurologically Intact, Normal Speech IVs and Medications Medications Reviewed: Medications were reviewed in detail Lab and Diagnostics Result Diagram: 05/14/1715 05/14/17 0815 X-Rays, CTs and MRIs Date of Service: 05/13/17 1026 PROCEDURE: CT BRAIN WITHOUT CONTRAST ([id number]) IMPRESSION: Hypodensities in the right frontal lobe, right temporal lobe and left occipital lobe are consistent with vasogenic edema related to multiple intracranial metastases which were better seen on the comparison contrast enhanced MRI. There is no midline shift. If clinically indicated, followup MRI with and without contrast may be considered. Assessment & Plan 71 F h/o of TIA, HTN, stage IV small cell lung cancer dx 2016 w/ mets to Liver , Bone, Brain tx w/ chemotherapy and prophylactic cranial radiation in July 2016, currently undergoing third-line therapy with combination immunotherapy with nivolumab and ipilimumab. Pt had had new MRI finding of multiple new small brain metastases on 04/29/17 presenting with progressively worsening motor dysfunction likely secondary to immunotherapy or vasogenic edema found CT of the head. # Acute vasogenic edema due to intracranial mets. Present on admission. Ongoing - Appreciate oncology consult by Dr. Boone - Started on Decadron during this hospital # Stage IV small cell lung cancer. Present on admission - Patient now opted to move to comfort care and hospice today # Hypertension. Chronic. - Continued home Metoprolol. # Acute hypokalemia. Present on admission - Resolved after repletion # Goals of care - Patient is moving towards comfort care and hopes to go home with hospice in am Resuscitation Status: DNR/DNI:Do Not Resuscitate/Intubate [place] May 14, 2017 17:24 [place] May 14, 2017 17:24
[2017-05-14] MEDS: HYDROcodone-APAP 5-325 mg Tablet PO PRN (20:29)
[2017-05-14 20:34] VITALS: BP 151/74; PULSE 85; RESP 17; O2SAT 98
--- NOTE | 2017-05-14 20:45 | PROG NOTE ---
[address] [address] PROGRESS NOTE PATIENT: PAMELLA COUCH : 1945 MR#: [id number] ADMIT: 05/13/2017 JOB ID: [id number] DATE: 05/14/2017 The patient has received dexamethasone since yesterday's admission. Her daughter and son-in-law are present and they report that the patient has somewhat improved since admission. She can speak without any problems, appears more oriented, and her hand coordination has significantly improved although not completely normalized. She has had a visit today with the hospice team. Her vitals have been stable. On exam, she has indeed clearly better hand coordination. The ataxia and dystonic changes have improved, although not resolved. She is still quite weak but improved. ASSESSMENT AND PLAN: A 71-year-old lady with slightly more than a year history of stage IV small cell lung cancer who has been recently started on whole-brain radiation end of last week and immunotherapy. She had this sudden deterioration in her neurological status and was admitted yesterday. Treatment attempts with steroids has clearly helped improving partially her symptoms suggesting that part of this issue was due to vasogenic edema, particularly in the cerebellar area. The patient has had a visit with hospice this afternoon and has decided to proceed with hospice rather than continuation of therapy. Her functional status has clearly deteriorated compared to two weeks ago. I certainly support her decision and she is planning to go home, probably tomorrow with hospice support, staying with her daughter. Further radiation therapy therefore is being canceled. I suggest to reduce the dose of steroids from currently 4 mg three times a day, to only twice a day and further taper her hospice.
[2017-05-15] MEDS: Dexamethasone 4 mg/mL Inj IVPUSH SCH ×2 (00:30→10:18)
[2017-05-15] MEDS: ProchlorPERazine 5 mg/mL 2 mL Inj IVPUSH PRN (00:33)
--- NOTE | 2017-05-15 01:28 | NUR ---
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 Port infusing NS TKO, dilauded given for pain and compazine for nausea. Pt somewhat confused when awaking at night, pulling on her IV line. Pt redirected and lying in bed comfortably. Denies SOB, chest pain, or headache. Care continues
[2017-05-15 05:37] VITALS: BP 149/77; PULSE 83; RESP 17; O2SAT 96
[2017-05-15 08:57] VITALS: BP 153/90; PULSE 93; RESP 18; O2SAT 96
--- NOTE | 2017-05-15 09:02 | NUR ---
Social Work- Readiness for Discharge Data: EMR Reviewed. Pt is on day 2 of hospitalization. Pt is likely to discharge today. T/C from Denise at [facility] regarding open date. Pt's equipment will be delivered today and then hospice will open tomorrow morning. SW spoke with pt at bedside regarding discharge plan, pt is agreeable to returning home today. T/C to pt's daughter Yolande regarding discharge plan, Yolande is agreeable and has received a phone call regarding equipment delivery already. Yolande is aware that pt may require BLS transport (pending orders from MD) and MK explained that it is never guaranteed that insurance will pay for this transport. Pt's daughter agreeable. T/C to [facility] confirming discharge plan, left message for Denise. Pt to discharge home with hospice this afternoon, SW will continue to follow. All updated and agreeable to plan. Assessment: Pt who will open with hospice tomorrow morning. Plan: Pt to discharge home with hospice this afternoon, SW will continue to follow. All updated and agreeable to plan. BYRON Gomez Addendum: 05/15/17 at 1144 by DON MCPHERSON SW received BLS transport order. [facility] scheduled ambulance for 1330. RN, pt, family updated. Denise at [facility] confirmed that equipment will be at the home prior to discharge. Paperwork in chart. MK will continue to follow. BYRON Gomez
[2017-05-15] MEDS: HYDROcodone-APAP 5-325 mg Tablet PO PRN (10:19)
[2017-05-15] MEDS ORDERED: DXM4T PO (10:38)
--- NOTE | 2017-05-15 10:43 | PCM.DIMED ---
Discharge Instructions Date of Service May 15, 2017 Dates of Hospitalization May 13, 2017 at 11:17 Discharge Diagnosis Discharge Diagnosis # Acute vasogenic edema due to intracranial metastasis. Present on admission. Improving # Stage IV small cell lung cancer. Present on admission # Hypertension. Chronic. Stable. # Acute hypokalemia. Present on admission - Resolved after repletion Diet Discharge Diet: No restrictions Activity Discharge Activity: No restrictions Patient Instructions Follow-up plan 1. Followup with home hospice 2. Followup with primary care provider or your oncologist as needed. [place] May 15, 2017 10:43
--- NOTE | 2017-05-15 11:44 | NUR ---
Arranged BLS transport for 1330 via [facility] for return to home and open with hospice. Updated ENGINEERING WRITER
[2017-05-15 12:08] VITALS: BP 157/85; PULSE 93; RESP 18; O2SAT 96
--- NOTE | 2017-05-15 12:16 | NUR ---
Social Work- Discharge/Multidisciplinary Rounds Data: Pt discussed in rounds. Pt will discharge home today with hospice to open tomorrow morning. SW received BLS transport order for pt. [facility] confirmed that pt's equipment will be delivered by noon. [employer] scheduled BLS transport at 1330. Pt updated at bedside and daughter updated by phone. PCS form completed. No additional discharge needs identified. Assessment: Pt who medically requires hospice Plan: Pt to discharge home via BLS today at 1330 with hospice to open tomorrow morning. Pt, RN, and pt's daughter all updated and agreeable to plan. Ingrid Bagley, AIR COMPRESSOR ENGINEER
--- NOTE | 2017-05-15 13:51 | NUR ---
Discharge Pt to discharge to home with BLS;Alert and confused; [facility], [facility], c/o pain, premed with 1 PO [facility] for transport to home. IV Port-a-cath discontinued. Pt family called at time of discharge/transport. Rx with BLS team along with written discharge instructions and all personal belongings (pt clothing).
--- NOTE | 2017-05-15 18:29 | PCM.DC.MED ---
Discharge Summary Date of Service May 15, 2017 Dates of Hospitalization Date of Hospital Admission May 13, 2017 at 11:17 Date of Discharge: May 15, 2017 Providers: Admitting Physician: Edin Dorman MD Primary Care Physician: Clare Attending Physician: Los Kitchen Diagnosis at Time of Discharge Diagnosis at Time of Discharge # Acute vasogenic edema due to intracranial metastasis. Present on admission. Improving # Stage IV small cell lung cancer. Present on admission # Hypertension. Chronic. Stable. # Acute hypokalemia. Present on admission - Resolved after repletion Consultations 1. Oncology Procedures XRay, CTs & MRIs Date of Service: 05/13/17 1026 PROCEDURE: CT BRAIN WITHOUT CONTRAST ([id number]) IMPRESSION: Hypodensities in the right frontal lobe, right temporal lobe and left occipital lobe are consistent with vasogenic edema related to multiple intracranial metastases which were better seen on the comparison contrast enhanced MRI. There is no midline shift. If clinically indicated, followup MRI with and without contrast may be considered. Brief History As noted in H&P by Dr. Dorman: 71 F h/o of stage IV small cell lung cancer dx 2016 w/ mets to Liver, Bone, Brain tx w/ chemotherapy and prophylactic cranial radiation in July 2016, currently undergoing third-line therapy with combination immunotherapy with nivolumab and ipilimumab. Pt had had new MRI finding of multiple new small brain metastases on 04/29/17 presenting with progressively worsening weakness to the point of not being able to walk this morning. Patient says her hands are contracted and she can no longer bear her own weight. Her limbs are also moving spontaneously at times. Denies any respiratory distress. Denies any loss of consciousness. Denies any seizure-like activity. Outpatient Oncologist- Dr. Boone. Last saw April 30. Started immunotherapy at that visit. 04/29/17- MRI- multiple new small brain metastases April 2017, new since 2015. Pt started XRT again and had 2 treatments. Was to get 3rd XRT today. Pt was not started on steroids as had no neurological symptoms at the time. Plan for Nivolumab 1 mg/kg and combined with ipilimumab 3 mg/kg every three weeks for four cycles and then switching to maintenance single agent nivolumab Past tx- received induction chemotherapy with carboplatin, etoposide, followed by consolidation radiation to the chest as well as prophylactic cranial radiation in July 2016 with documented lack of central nervous system metastases based on MRI of late June 2016. She had sold her house and is currently staying at a condo of her son in [facility] # Acute vasogenic edema due to intracranial mets. Present on admission. Ongoing - Appreciate oncology consult by Dr. Boone - Started on Decadron during this hospital # Stage IV small cell lung cancer. Present on admission - Patient opted to move to comfort care and hospice # Hypertension. Chronic. - Continued home Metoprolol. # Acute hypokalemia. Present on admission - Resolved after repletion # Goals of care - Patient moving towards comfort care and going home with hospice today Exam Vital Signs (Last) Date Time Temp Pulse Resp B/P Pulse Ox O2 Delivery O2 Flow Rate FiO2 05/15/17 12:08 36.3 93 18 157/85 96 Room Air Exam Lungs: CTA bilat CV: RRR Test 05/13/17 08:00 05/14/17 08:15 Total Bilirubin 0.5mg/dL (0.0-1.2) Aspartate Amino Transf (AST/SGOT) 25U/L (0-50) Alanine Aminotransferase (ALT/SGPT) 28U/L (0-32) Alkaline Phosphatase 149U/L (25-165) Total Protein 6.7g/dL (6.4-8.4) Albumin 3.3g/dL (3.4-5.0) Hold [place] Top Tube Received (Received) White Blood Count 7.4th/mm3 (3.8-10.1) Red Blood Count 3.95mil/mm3 (3.90-5.20) Hemoglobin 12.3g/dL (12.0-15.6) Hematocrit 37.7% (35.0-46.0) Mean Corpuscular Volume 95.4fL (81-100) Mean Corpuscular Hemoglobin 31.1pg (27.0-35.0) Mean Corpuscular Hemoglobin Concent 32.6% (32.0-37.0) Red Cell Distribution Width 15.8% (12.3-15.4) Platelet Count 183bil/L (150-400) Neutrophils (%) (Auto) 76.5% (40-74) Lymphocytes (%) (Auto) 16.1% (14-46) Monocytes (%) (Auto) 6.6% (4-12) Eosinophils (%) (Auto) 0.1% (0-5) Basophils (%) (Auto) 0.3% (0-3) Prothrombin Time 11.8sec (8.1-12.5) Prothromb Time International Ratio 1.10ratio Activated Partial Thromboplast Time 31.0sec (22.8-33.0) Sodium Level 139mEq/L (134-144) Potassium Level 4.3mEq/L (3.5-5.2) Chloride Level 100mEq/L (97-108) Carbon Dioxide Level 23mmol/L (18-29) Blood Urea Nitrogen 13mg/dL (8-27) Creatinine 0.60mg/dL (0.57-1.00) Estimat Glomerular Filtration Rate 142mL/min (>59) Glucose Level 139mg/dL (60-99) Calcium Level 8.8mg/dL (8.5-10.1) Magnesium Level 2.0mg/dL (1.6-2.6) Thyroid Stimulating Hormone (TSH) 0.717uIU/mL (0.450-4.500) Discharge Medications Discharge Medications Aspirin Chew (Aspirin Chew) 81 Mg Chew 81 MG PO DAILY (Reported) Dexamethasone (Dexamethasone) 4 Mg Tablet 4 MG PO BID Prescribed by: LOS KITCHEN MD Prochlorperazine Maleate (Compazine) 10 Mg Tablet 10 MG PO q4-6hrs prn (Reported ) As needed Hydrocodone-Acetaminophen 5-325 mg (Hydrocodone-Acetaminophen 5-325 mg) 1 Each Tablet 1 TABLET PO Q4H PRN PRN For Pain (Reported) Hydromorphone (Hydromorphone) 2 Mg Tablet 2 MG PO Q4H PRN PRN Pain (Reported) Metoprolol Tartrate (Metoprolol Tartrate) 25 Mg Tablet 25 MG PO DAILY PRN PRN Tachycardia (Reported) Ondansetron ODT (Zofran ODT) 8 Mg Tablet 8 MG PO Q4H PRN PRN For Nausea ( Reported) Followup Plan Disposition: Home with hospice Follow-up plan 1. Followup with home hospice 2. Followup with primary care provider or your oncologist as needed. Discharge Diet: No restrictions Discharge Activity: No restrictions Time spent 35 min copies to: Perfecto Bridges MD, Masoud May 15, 2017 18:29
== END 2017-05-15 13:51 | disposition hospice, home (50) | DRG 54 ==
LOC: SED 07:26 → OBSVTOIN 11:17 → OSC 11:17
PROVIDERS: ADMIT Internal Medicine; ATTEND Internal Medicine
DX: C79.31 Secondary malignant neoplasm of brain (principal); G93.6 Cerebral edema; C34.90 Malignant neoplasm of unspecified part of unspecified bronchus or lung; C78.7 Secondary malignant neoplasm of liver and intrahepatic bile duct; C79.51 Secondary malignant neoplasm of bone; W18.30XA Fall on same level, unspecified, initial encounter; Y92.9 Unspecified place or not applicable; Z92.3 Personal history of irradiation; Z79.82 Long term (current) use of aspirin; Z87.891 Personal history of nicotine dependence; I10 Essential (primary) hypertension; E87.6 Hypokalemia